=== PATIENT | female | born 1960 | race Caucasian/White ===

== ENCOUNTER 2016-04-25 08:45 | Emergency (ER) | payer BC ==
[2016-04-25 08:58] VITALS: BP 90/45
[2016-04-25] MEDS ORDERED: Ondansetron TAB* 4 MG PO ONE (09:14)
[2016-04-25] MEDS ORDERED: Ondansetron ODT TAB* 4 MG ONE (09:20)
--- NOTE | 2016-04-25 13:04 | UC ---
Lane Rhodes Adam, scribed for Nimisha Munson MD on 04/25/16 at 0914 . General HPI - HPI Summary HPI Summary: Pt is a 55 year old female presenting with URI symptoms, myalgia, and diarrhea. She states that she began feeling ill 5 days ago, starting with a sore throat and a cough. She now c/o lower back pain (both sides), generalized myalgia, fatigue, diarrhea, and dry heaves. Her last episode of dry heaving was this morning. She states that she has been unable to keep anything down. She denies rash. She denies blood in stool, black stool, hematuria, or dark urine. Pt has been taking Mucinex and Motrin. She is a smoker but she states that she has not been smoking the past few days because she is too tired. - History of Current Complaint Chief Complaint: UCGeneralIllness Stated Complaint: FEVER BACK PAIN NAUSEA Time Seen by Provider: 04/25/16 08:53 Hx Obtained From: Patient Onset/Duration: Gradual Onset, Lasting Days, Still Present Timing: Constant Onset Severity: Moderate Current Severity: Moderate Pain Location at: Back, generalized Associated Signs & Symptoms: Positive: Back Pain, Cough, Diarrhea, Nausea - Dry heaves - Allergy/Home Medications Allergies/Adverse Reactions: Allergies Allergy/AdvReac Type Severity Reaction Status Date / Time No Known Allergies Allergy Verified 04/25/16 08:57 Home Medications: Home Medications Ibuprofen [Advil] 400 mg PO 04/25/16 [History] Pseudoephedrine-Guaifenesin [Mucinex D 60-600 mg] 1 tab PO 04/25/16 [History] PMH/Surg Hx/FS Hx/Imm Hx Endocrine History Of: Denies: Diabetes, Thyroid Disease Cardiovascular History Of: Denies: Cardiac Disorders, Hypertension Respiratory History Of: Denies: COPD, Asthma GI/ History Of: Denies: Ulcer - Surgical History Surgical History: Yes Surgery Procedure, Year, and Place: COLONOSCOPY - Family History Known Family History: Positive: Hypertension - Mother - Social History Occupation: Employed Full-time - Self-employed Lives: With Family - Daughter Alcohol Use: Occasionally Substance Use Type: None Smoking Status (MU): Heavy Every Day Tobacco Smoker Type: Cigarettes Review of Systems Constitutional: Fatigue ENT: Sore Throat Respiratory: Cough Gastrointestinal: Diarrhea, Other - Nausea - dry heaves Genitourinary: Negative Musculoskeletal: Myalgia - Generalized, back pain All Other Systems Reviewed And Are Negative: Yes Physical Exam Triage Information Reviewed: Yes Vital Signs: Initial Vital Signs Temp 97.3 F 04/25/16 08:53 Pulse 69 04/25/16 08:53 Resp 18 04/25/16 08:53 BP 90/45 04/25/16 08:53 Pulse Ox 98 04/25/16 08:53 - Additional Comments * Appearance: Well-Nourished, looks tired. Nontoxic. * Eye Exam: Normal * ENT Exam: Normal. Lips a little dry. * Neck exam: Normal, No adenopathy appreciated * Respiratory Exam: Normal, no dyspnea, no tachypnea, normal respiratory rate. Mild cough, no wheezing to auscultation. * Cardiovascular Exam: Normal * Cardiovascular: Heart rate regular, good general skin color, good capillary refill * Abdominal Exam: Normal * Abdomen Description: Nontender, No Organomegaly, Soft. + hyperactive bs. Soft. * Bowel Sounds: Present * Musculoskeletal Exam: Normal. Gait steady. * Musculoskeletal: Strength Intact * Neurological Exam: Normal: nonfocal, grossly intact * Psychological Exam: Normal: conversing easily and appropriately Skin Exam: Normal: no visible or reported rash Diagnostics - Laboratory Diagnostic Studies Completed/Ordered: Influenza A (Rapid) - Positive H. Influenza B (Rapid) - Negative. POC Urine Protein 2+. POC Urine Ketones 1 +. POC Urine Blood 3+. POC Urine Bilirubin 1+ Course/Dx - Course Course Of Treatment: No new problems while in the [facility]. Feels better s/p Zofran odt. Influenza A +. D/w pt Tamiflu (past 3 days) risk / benefit. She would like a script, aware that maximum efficacy window may have passed. Rx for: Tamiflu, Zofran odt, and Albuterol prn (+ hx smoking, + cough, no inhaler at home). Reviewed contact precautions. Will f/u with pcp, per routine. Will seek medical attention sooner for worse or new problems in the meantime. - Differential Dx - Multi-Symptom Provider Diagnoses: Influenza A Discharge - Discharge Plan Condition: Stable Disposition: HOME Prescriptions: Albuterol HFA INHALER* [Ventolin HFA Inhaler*] 1 - 2 puff INH Q4H PRN #1 mdi PRN Reason: Wheezing Ondansetron ODT TAB* [Zofran 4 MG Odt TAB*] 4 mg PO Q6H PRN #16 tab.odt PRN Reason: Nausea Oseltamivir Phosphate [Tamiflu] 75 mg PO BID #10 cap Patient Education Materials: Influenza (ED) Referrals: Lew Oglesby MD [Primary Care Provider] - Additional Instructions: Influenza type A + Follow up with Dr. Oglesby, per routine. Seek medical attention for worse or new problems in the meantime. Drink plenty of fluids. Household contacts should be checked by their doctor, if they develop similar symptoms. The documentation as recorded by the Lane cardenas Adam accurately reflects the service I personally performed and the decisions made by me, Nimisha Munson MD.
== END 2016-04-25 10:19 | disposition home or self-care (01) ==
LOC: UCEAST 08:45
DX: J11.1 Influenza due to unidentified influenza virus with other respiratory manifestations (principal); R31.9 Hematuria, unspecified; F17.210 Nicotine dependence, cigarettes, uncomplicated
CPT/HCPCS: 81003; 87502; 99202; A9270-GY; G0463

== ENCOUNTER 2016-08-22 03:06 | Emergency (ER) | payer BC ==
[2016-08-22 03:15] VITALS: BP 126/46
[2016-08-22] MEDS ORDERED: Ketorolac INJ* 60 MG/2 ML VIAL IM ONE (03:44)
--- NOTE | 2016-08-22 04:52 | ED ---
Gera Rhodes Thomas, scribed for Hardeep Banks MD on 08/22/16 at 0328 . HPI Chest Pain - HPI Summary HPI Summary: The pt is a 55 y/o F presenting to the ED c/o r rib area pain. She states that the pain has been present for a week but significantly worsened at 17:30 yesterday. She rates her pain 9/10. She states that her pain is worsened with coughing and movement. She took ibuprofen 800mg at 18:00 yesterday for the pain and she applies ice to the pained area as well. Both ice and ibuprofen lessen the pain. She additionally c/o coughing. She denies fever. SHx: 1 PPD smoking. NKDA. The pt says that "it feels like I pulled a muscle when I was coughing". - History of Current Complaint Chief Complaint: EDChestWallPain Time Seen by Provider: 08/22/16 03:20 Hx Obtained From: Patient Onset/Duration: Started Weeks Ago - 1 week ago was onset, Still Present, Worse Since - 17:30 yesterday Current Severity: Severe Pain Intensity: 9 Pain Scale Used: 0-10 Numeric Chest Pain Location: Discrete at: - L rib area Aggravating Factor(s): Movement, Other: - POS: coughing Alleviating Factor(s): Other: - POS: ice, ibuprofen Associated Signs and Symptoms: Positive: Cough. Negative: Fever - Allergy/Home Medications Allergies/Adverse Reactions: Allergies Allergy/AdvReac Type Severity Reaction Status Date / Time No Known Allergies Allergy Verified 04/25/16 08:57 PMH/Surg Hx/FS Hx/Imm Hx Previously Healthy: Yes Endocrine/Hematology History: Denies: Hx Diabetes, Hx Thyroid Disease Cardiovascular History: Denies: Hx Hypertension Respiratory History: Denies: Hx Asthma, Hx Chronic Obstructive Pulmonary Disease (COPD) GI History: Denies: Hx Ulcer - Surgical History Surgery Procedure, Year, and Place: COLONOSCOPY Infectious Disease History: No Infectious Disease History: Denies: Hx Hepatitis, Hx Human Immunodeficiency Virus (HIV), Traveled Outside the [place] in Last 30 Days - Family History Known Family History: Positive: Hypertension - Mother - Social History Alcohol Use: Occasionally Substance Use Type: Reports: None Smoking Status (MU): Heavy Every Day Tobacco Smoker Type: Cigarettes Review of Systems Constitutional: Negative Negative: Fever Eyes: Negative ENT: Negative Cardiovascular: Negative Positive: Cough - cough worsens her rib pain Gastrointestinal: Negative Genitourinary: Negative Musculoskeletal: Other - POS: L rib area pain, 10/22 Skin: Negative Neurological: Negative Psychological: Normal All Other Systems Reviewed And Are Negative: Yes Physical Exam Triage Information Reviewed: Yes Vital Signs On Initial Exam: Initial Vitals Temp Pulse Resp BP Pulse Ox 97.1 F 65 18 126/46 96 08/22/16 03:10 08/22/16 03:10 08/22/16 03:10 08/22/16 03:10 08/22/16 03:10 Vital Signs Reviewed: Yes Appearance: Positive: Well-Appearing, Pain Distress - mild discomfort Skin: Positive: Warm Head/Face: Positive: Normal Head/Face Inspection Eyes: Positive: RASHID ENT: Positive: Hearing grossly normal Neck: Positive: Supple Respiratory/Lung Sounds: Positive: Clear to Auscultation, Breath Sounds Present , Other - mild tenderness rt lower ribs area Cardiovascular: Positive: Normal Abdomen Description: Positive: Nontender, Soft Bowel Sounds: Positive: Present Musculoskeletal: Positive: Strength/ROM Intact Neurological: Positive: Alert, Oriented to Person Place, Time Psychiatric: Positive: Affect/Mood Appropriate Diagnostics - Vital Signs Vital Signs Temp Pulse Resp BP Pulse Ox 08/22/16 03:15 97.1 F 63 18 126/46 96 08/22/16 03:10 97.1 F 65 18 126/46 96 - Laboratory Lab Statement: Any lab studies that have been ordered have been reviewed, and results considered in the medical decision making process. - Radiology CXR with Ribs Xray Interpretation: No Acute Changes - No evidence of active cardiopulmonary disease. Radiology Interpretation Completed By: ED Physician Re-Evaluation - Re-Evaluation First Eval Re-Evaluation Time: 04:53 Change: Improved - pt pain free Chest Pain Course/Dx - Diagnoses Provider Diagnoses: Pleurisy Discharge - Discharge Plan Condition: Improved Disposition: HOME Patient Education Materials: Pleurisy (ED) Referrals: Lew Oglesby MD [Primary Care Provider] - 3 Days The documentation as recorded by the Gera cardenas Thomas accurately reflects the service I personally performed and the decisions made by , Hardeep Banks MD.
--- NOTE | 2016-08-22 07:37 | RAD ---
HISTORY: Right rib pain COMPARISONS: None VIEWS: 6, Frontal view of the chest with frontal and oblique views of the right hemithorax. FINDINGS: There is no displaced rib fracture or pneumothorax. The visualized lungs are clear. IMPRESSION: NO DISPLACED RIB FRACTURE OR PNEUMOTHORAX
== END 2016-08-22 04:59 | disposition home or self-care (01) ==
LOC: ED 03:06
DX: R09.1 Pleurisy (principal); R05 Cough; F17.210 Nicotine dependence, cigarettes, uncomplicated
CPT/HCPCS: 96372; 99282; J1885